=== PATIENT | male | born 1985 | race Two or more races ===

== ENCOUNTER 2016-04-29 18:30 | Emergency (ER) | payer SELFPAY | END 2016-04-29 19:06 | disposition left against medical advice (07) | LOC: ER 18:32 | DX: Z53.21 Procedure and treatment not carried out due to patient leaving prior to being seen by health care provider (principal) ==

== ENCOUNTER 2016-07-13 01:12 | Emergency (ER) | payer SELFPAY ==
[~2016-07-13] VITALS: Ht 175.3 cm; Wt 72.6 kg
--- NOTE | 2016-07-13 01:25 | NUR ---
To bed 7 a 31 yo male bbra from home c/o of accidental overdose, agonal breathing prior to EMS administration of 2mg of narcan. Patient is aaox3 at this time. No s/s of acute distress. Breathing even and unlabored, saturating well on room air at 99%. Skin warm and dry to touch. Denies any pain or discomfort at this time. v/s wnl. Gowned patient, for er md pittman.
[2016-07-13] MEDS ORDERED: IV SET PRIMARY 1 EA INFUS.SET MC ONE (01:27)
[2016-07-13] MEDS ORDERED: IV NS 0.9% 1,000 ML ONE (01:27)
[2016-07-13] MEDS: IV NS 0.9% 1,000 ML BAG IV ONE (01:50)
--- NOTE | 2016-07-13 01:50 | NUR ---
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
--- NOTE | 2016-07-13 01:51 | NUR ---
saline lock started on the right upper arm 20g.
[2016-07-13 02:04] LABS: BASOPHILS % (AUTO) 0.3 % (0.0-2.0); EOSINOPHILS # (AUTO) 0.3 /CMM (0.0-0.7); EOSINOPHILS % (AUTO) 2.9 % (0.0-6.0); HEMATOCRIT 50 % (39-51); HEMOGLOBIN 16.7 g/dL (13.5-17.5); LYMPHOCYTES # (AUTO) 1.5 /CMM (0.8-4.8); LYMPHOCYTES % (AUTO) 12.9 % (20.0-44.0); MEAN CORPUSCULAR HEMOGLOBIN 29 PG (26.0-33.0); MEAN CORPUSCULAR HGB CONC 33 g/dl (31.0-36.0); MEAN CORPUSCULAR VOLUME 87 fL (80-96); MONOCYTES # (AUTO) 0.8 /CMM (0.1-1.30); MONOCYTES % (AUTO) 7.3 % (2.0-12.0); NEUTROPHILS # (AUTO) 8.7 /CMM (1.8-8.9); NEUTROPHILS % (AUTO) 76.6 % (43.0-81.0); PLATELET COUNT (AUTO) 303 /CMM (150-450); RDW COEFFICIENT OF VARIATION 13.6 (11.5-15.0); RED BLOOD CELL COUNT(AUTO) 5.71 MIL/uL (4.5-6.0); WHITE BLOOD COUNT (AUTO) 11.4 K/uL (4.3-11.0)
--- NOTE | 2016-07-13 02:04 | NUR ---
lapd at bedside.
[2016-07-13 02:20] LABS: ALBUMIN 3.7 g/dL (3.4-5.0); BILIRUBIN,TOTAL 0.3 mg/dL (0.2-1.0); CALCIUM, SERUM 9.1 mg/dL (8.5-10.1); CREATININE 0.9 mg/dL (0.6-1.3); POTASSIUM 4.1 mmol/L (3.5-5.1)
[2016-07-13 02:21] LABS: SALICYLATE 1.4 mg/dL (2.8-20.0)
--- NOTE | 2016-07-13 02:49 | NUR ---
urine collected and sent to lab.
[2016-07-13 03:13] LABS: APPEARANCE,URINE CLEAR (CLEAR); BILIRUBIN,URINE NEGATIVE (NEGATIVE); BLOOD, URINE NEGATIVE Ery/uL (NEGATIVE); COLOR,URINE YELLOW (YELLOW); KETONES,URINE NEGATIVE (NEGATIVE); LEUKOCYTE ESTERASE ,URINE NEGATIVE (NEGATIVE); NITRITE, URINE NEGATIVE (NEGATIVE); PROTEIN,URINE TRACE mg/dl (NEGATIVE); UGLUCOSE NEGATIVE (NEGATIVE); UROBILINOGEN,URINE 0.2 EU/dL (0.2)
[2016-07-13 03:28] LABS: PHENCYCLIDINE SCREEN,URINE NEGATIVE (NEGATIVE)
[2016-07-13 03:34] LABS: ADD URINE CULTURE NO; BACTERIA,URINE None seen /HPF (None Seen); RBC,URINE NONE SEEN /HPF (0-2); SQUAMOUS EPITHELIAL CELL,UR Few /HPF (None Seen); WBC,URINE 0-2 /HPF (0-3)
[2016-07-13 03:49] LABS: CANNABINOID, URINE POSITIVE (NEGATIVE)
--- NOTE | 2016-07-13 05:55 | NUR ---
Patient discharged to home in stable condition. Written and verbal after care instructions given. Patient verbalizes understanding of instruction. Patient is ambulatory with steady gait.
[2016-07-13 05:56] VITALS: BP 142/90
== END 2016-07-13 05:56 | disposition home or self-care (01) ==
LOC: ER 01:13
DX: T65.891A Toxic effect of other specified substances, accidental (unintentional), initial encounter (principal); Z88.0 Allergy status to penicillin; Y92.89 Other specified places as the place of occurrence of the external cause
CPT/HCPCS: 36415; 80048; 80076; 80305; 80329; 81001; 85025; 96360; 99284; A4606; G0480 ×2; J7030; Z7610; 81000-TC; G6039-TC